=== PATIENT | female | born 1965 | race Caucasian/White ===

== ENCOUNTER 2017-11-30 16:39 | Emergency (ER) | payer BC ==
[~2017-11-30] VITALS: Ht 167.6 cm; Wt 71.7 kg
== END 2017-11-30 16:55 | disposition home or self-care (01) ==
LOC: ED 16:39
DX: R07.81 Pleurodynia (principal)

== ENCOUNTER 2019-03-23 06:50 | Day surgery (SDC) | payer BC, OTHER ==
--- NOTE | 2019-03-16 08:04 | NUR ---
LE 06- PT REPORTS DRINKING WATER "THROUGH THE NIGHT AND THIS MORNING". PT ALSO SHARES THAT SHE MAY NOT HAVE A RIDE HOME AT THIS TIME. INFORMATION GIVEN TO OR CUSTOMER SERVICE AND SALES CONSULTANT AND MONTSE WOMACK. 07- MONTSE WOMACK IN PT ROOM AND ORDERS RECEIVED TO CANCEL PT DUE TO LACK OF NPO AND PREVIOUS HX OF ASPIRATION. NOTIFIED. 729- DR. MICHAEL IN ROOM AND CANCELS PT UNTIL NEXT WEDNESDAY. INSTRUCTIONS GOVEN REGARDING NPO STATUS STARTING AT 1700 THE NIGHT BEFORE. PT AGREEABLE. PT AMBULATES FROM DEPARTMENT.
--- NOTE | 2019-03-16 14:17 | NUR ---
RIGO RUEDA REQUESTED I NOT ENTER PTS' RM AT THIS TIME. SHE HAS JUST BEEN INFORMED THAT HER SURGERY IS CANCELLED BECAUSE OF NON NPO. RN DID NOT WANT TO UPSET PT ANY MORE. WILL FOLLOW NEEDED
[~2019-03-23] VITALS: Ht 167.6 cm; Wt 78.0 kg
--- NOTE | ~2019-03-23 | OR ---
[facility] [address] [place], [place] [address] Draft DATE OF OPERATION: 03/23/2019 SURGEON: Becca Keller DO PREOPERATIVE DIAGNOSES: 1. Cervical intraepithelial neoplasia III. 2. Tobacco use. 3. History of gastroesophageal reflux disease with possible os placement prior attempted conization. POSTOPERATIVE DIAGNOSES: 1. Cervical intraepithelial neoplasia III. 2. Tobacco use. 3. History of gastroesophageal reflux disease with possible os placement prior attempted conization. PROCEDURES PERFORMED: BOX SPINNER: Erich Ko MD ANESTHESIA: Spinal. ESTIMATED BLOOD LOSS: 10 mL. SPECIMENS: 1. Conization of the cervix marked at 12 o'clock with a suture. 2. Endocervical curretage packing, squamous cell in the cervical cone bed. FINDINGS: Normal external genitalia. No cervical masses. Cervix unchanged from prior colposcopy. No lesions in the vagina noted with repeat exam including Lugol's. Hemostasis at the end of the procedure. COMPLICATIONS: None. INDICATIONS: Ms. Emery is a pleasant 53-year-old white female, who presented for evaluation of an PATIENT NAME: ELIOT EMERY OPERATIVE REPORT DATE OF : 63 REPORT #: [id number] PHYSICIAN: BECCA KELLER DO PCP: TAURUS ESCALANTE MD REPORT IS CONFIDENTIAL AND NOT TO BE RELEASED WITHOUT AUTHORIZATION [address] [place] [id number] Draft abnormal Pap. She had not had a Pap smear for many many years, and upon establishing with primary care, her Pap smear was suggestive of cervical carcinoma. She underwent cervical conization with biopsies that demonstrated severe dysplasia SHAKIRA III. Given her age and clinical scenario, I recommended excisional procedure with cold knife cone. Risks, benefits, and alternatives were discussed in detail at the time of procedure. A month ago she was scheduled to undergo conization, but just prior to starting the procedure, she had an aspiration event. She had severe uncontrolled GERD that was diagnosed at that time. This has been well treated with omeprazole, with the help of her primary care provider, Dr. Escalante. Prior to surgery she had been n.p.o. for an extended period of time, and precautions were taken to avoid repeat possible aspiration. TECHNIQUE: The patient was taken to the operating room where a time-out was performed to confirm correct patient, correct procedure. Spinal anesthesia was also established and the patient was prepped and draped in the dorsal lithotomy position with feet in Yellofin stirrups. ICPs were on and running, and no preoperative antibiotics were indicated. Once the spinal anesthetic was completed, the patient was given a dose of heparin. Once the spinal anesthetic was confirmed to be adequate, a weighted speculum was placed in the vagina and the anterior lip of the cervix was grasped with an Allis clamp. The cervix was cleansed and no masses were noted. Acetic acid was applied to the cervix with aceto-white changes noted, particularly from 4-5 o'clock. No additional lesions were noted. Lugol's was then applied to the cervix and the upper vagina. No additional lesions were noted. Stay sutures were then placed at 3 and 9 o' clock. Plain sutures of 0 chromic were used, and pads. Using stay sutures and Allis clamps, cervical retraction was performed, and cold knife cone was performed with an 11 blade, with careful attention to maintain good margins around gross abnormalities were noted with Lugol's solution. Circumferential cone was made, and apex was noted in the endocervical canal at the upper part of the cervix. The apex was cut with Kimberly scissors and the biopsy was marked at 12 o'clock with a silk suture, endocervical block was then performed using 0.25% Marcaine with epinephrine. Scant bleeding was noted conization, and this was made hemostatic with electrocautery and Monsel solution. Prior to this, an endocervical curettage was performed. Once good hemostasis was obtained, a small piece of Surgicel was placed into the cervical bed, and stay sutures were midline, with good hemostasis appreciated. The patient was then taken to the PACU in good and stable condition. Sponge, needle, and instrument count was correct x2 at the end of the procedure. Dr. Ko was present and participated in all portions of the procedure. PATIENT NAME: ELIOT EMERY OPERATIVE REPORT DATE OF : 63 REPORT #: [id number] PHYSICIAN: BECCA KELLER DO PCP: TAURUS ESCALANTE MD REPORT IS CONFIDENTIAL AND NOT TO BE RELEASED WITHOUT AUTHORIZATION [facility] [address] [place] [id number] Draft Becca Keller DO JDW/MODL /[id number] Copies: ~ PATIENT NAME: ELIOT EMERY OPERATIVE REPORT DATE OF : 63 REPORT #: [id number] PHYSICIAN: BECCA KELLER DO PCP: TAURUS ESCALANTE MD REPORT IS CONFIDENTIAL AND NOT TO BE RELEASED WITHOUT AUTHORIZATION
[~2019-03-23 06:50] MED LIST: LIPITOR80 MG GT; OMEPRAZOLE20 MG PO; PROZAC10 MG PO
[2019-03-23] MEDS ORDERED: IBUPROFEN800 MG PO (12:03)
[2019-03-23] MEDS ORDERED: NORCO 5-325 TA1 EACH PO (12:04)
--- NOTE | 2019-03-23 12:13 | NUR ---
PT RESTING IN BED WITH SCD'S IN PLACE. PT DENIES ANY PAIN OR NAUSEA, TOLERATES ORAL WELL. SPINAL NOT COMPLETELY RESOLVED, PT STATES BILAT TOES STILL NUMB. CALL LIGHT WITHIN REACH.
--- NOTE | 2019-03-23 13:25 | NUR ---
1245: PT STATES TOES NO LONGER NUMB, WOULD LIKE TO TRY AMBULATING TO BATHROOM. PT HAS STEADY GAIT WITH RN ASSIST TO BATHROOM. PT UNABLE TO VOID QS, ONLY DRIBBLES. PT BACK TO ROOM AND BLADDER SCANNED OF 662 MLS IN BLADDER. ICED WATER REFILLED. 1310: DR. MICHAEL NOTIFIED OF PT URINARY STATUS. VERBALLY ORDERS PT TO STAY ONE MORE HOUR TO SEE IF SHE CAN VOID ON OWN. WILL CONTINUE TO MONITOR. PT ENCOURAGED TO USE CALL LIGHT FOR ANY NEEDS. PT FRINED REMAINS AT BEDSIDE.
--- NOTE | 2019-03-23 14:38 | NUR ---
PT IS ALERT, ORIENTED AND SUPPORTED BY A GOOD FRIEND. PT SEEMED INFORMED- LEAST MUCH SHE FELT SHE NEEDED TO KNOW. SHE THANKED ME FOR VISIT AND REQUESTED PRAYER. WILL FOLLOW NEEDED
--- NOTE | 2019-03-23 15:02 | NUR ---
1415: PT UP TO BATHROOM WITH RN ASSIST, STEADY GAIT. PT ABLE TO VOID 400 MLS YELLOW URINE WITH NO PROBLEMS. PT BACK TO ROOM TO GET DRESSED WITH FRIEND IN ROOM. 1430: IV REMOVED WNL. DC INSTRUCTIONS GIVEN IN PRESENCE OF PT AND FRIEND, ALL QUESTIONS ADDRESSED. PAIN PRESCRIPTION IN DC FOLDER WITH PT. PT DC'S VIA WC TO PERSONAL VEHICLE AT MAIN ENTRANCE OF HOSPITAL.
--- NOTE | 2019-03-27 10:19 | PATH ---
[facility] [address] [place], [place] [address] Signed SPECIMEN(S): A ENDOCERVICAL CURETTINGS SPECIMEN(S): B CERVICAL CONE AT 12 O'CLOCK SPECIMEN SOURCE: A. ENDOCERVICAL CURETTINGS B. CERVICAL CONE AT 12 O'CLOCK CLINICAL HISTORY: SHAKIRA III with severe dysplasia. FINAL PATHOLOGIC DIAGNOSIS: A. Uterus, endocervix, curettage: - No microscopic pathologic diagnosis. B. Uterus, cervix, cone biopsy: - Cervix - 12-3 o'clock: Cervical intraepithelial neoplasia (SHAKIRA) grade 2 and grade 3. - Endocervical and ectocervical margins: Free of dysplasia. - Moderate subacute cervicitis. - Cervix - 3-6 o'clock: SHAKIRA 2 and SHAKIRA 3. - Margins: Free of dysplasia. - Mild chronic cervicitis - Cervix - 6-9 o'clock: SHAKIRA 2 and 3. - Endocervical and ectocervical margins: Free of dysplasia. - Moderate chronic cervicitis. - Cervix - 9-12 o'clock: SHAKIRA 3. - Endocervical and ectocervical margins of excision free of dysplasia. - Mild chronic cervicitis. COMMENT: The patient had previous biopsies of the uterine cervix received at [facility] 01/19/2019 ([id number]) with results of SHAKIRA 2 on the 6 o'clock biopsy and SHAKIRA on the 9 and 12 o'clock biopsies. There are no recent Pap smears on this patient in the [facility] database. GERALDO:cml:C2NR MICROSCOPIC EXAMINATION: Histologic sections of all submitted blocks are examined by light microscopy. PATIENT NAME: ELIOT SMALLS PATHOLOGY DATE OF : 63 REPORT #: [id number] PHYSICIAN: EMELY CHAMPION PCP: TAURUS ESCALANTE MD REPORT IS CONFIDENTIAL AND NOT TO BE RELEASED WITHOUT AUTHORIZATION [facility] [address] [place], [place] [address] Signed These findings, together with the gross examination, support the pathologic diagnosis. Immunostains for p16 and Ki-67 are obtained along with appropriately positive controls, on material from cassettes B3 and B4. Results support the above diagnoses. GROSS DESCRIPTION: Two specimens are received in two containers, labeled "BB." A. The specimen, labeled "BB, endocervical curettings," is received in formalin and consists of several pieces of pink-cheng tissue fragments that aggregate measure 0.1 cm in diameter. The size of the fragments is small that is possible to not survive processing. Specimen is entirely submitted in cassette (A1). B. The specimen, labeled "BB, cervical cone biopsy," is received in formalin and consists of cone shaped cervical tissue that measures 1.5 x 1.2 x 2.5 cm. The specimen shows black tag that is designated as 12 o'clock. The ectocervix is pink-cheng and slightly roughed. Specimen is inked: Cervical canal opening-blue, surgical resection margins, black. Specimen is serial sectioned and entirely submitted in five cassettes. Cassette summary: (B1) From 12 to 3 o'clock (B2) 3 to 6 o'clock (B3-B4) 6 to 9 o'clock (B5) 9 to 12 o'clock JS (under the direct supervision of a pathologist) The Gross Description was prepared using a voice recognition system. The report was reviewed for accuracy; however, sound-alike word errors, addition and/or deletions may occur. If there is any question about this report, please contact Client Services. ADDITIONAL NOTES: Immunohistochemical and/or in situ hybridization studies were performed on this case with the appropriate positive controls that react as expected. This test was developed and its performance characteristics determined by [facility]. It has not been cleared or approved by the U.S. Food and Drug Administration. The FDA has determined that such clearance or approval is not necessary. This test is used for clinical purposes. It should not be regarded as investigational or for research. [facility] is certified under the Clinical Laboratory Improvement PATIENT NAME: ELIOT SMALLS PATHOLOGY DATE OF : 63 REPORT #: [id number] PHYSICIAN: EMELY CHAMPION PCP: TAURUS ESCALANTE MD REPORT IS CONFIDENTIAL AND NOT TO BE RELEASED WITHOUT AUTHORIZATION [facility] [address] [place], [place] [address] Signed Amendments of 1988 (CLIA) as qualified to perform high complexity clinical laboratory testing. PERFORMING LABORATORY: The technical component was performed by [facility], [address] [place] [address] (Systems Administration Analyst: Kirsten Zuleta MD; CLIA# [id number]). Professional interpretation was performed by [facility], [address] [address] (Systems Administration Analyst: Oscar Park MD; CLIA# [id number]). Diagnostician: Oscar Park MD Pathologist Electronically Signed 03/27/2019 Copies: ~ PATIENT NAME: ELIOT SMALLS PATHOLOGY DATE OF : 63 REPORT #: [id number] PHYSICIAN: EMELY PATHOLOGY PCP: TAURUS ESCALANTE MD REPORT IS CONFIDENTIAL AND NOT TO BE RELEASED WITHOUT AUTHORIZATION
== END 2019-03-23 14:40 | disposition home or self-care (01) ==
LOC: OPS 06:50 → DS 06:50 → OPS 14:40
PROVIDERS: Obstetrics & Gynecology
PROC: 0UBC7ZZ Excision of Cervix, Via Natural or Artificial Opening (ICD-10-PCS; principal; 2019-03-23 10:30)
DX: D06.9 Carcinoma in situ of cervix, unspecified (principal); I10 Essential (primary) hypertension; E78.00 Pure hypercholesterolemia, unspecified; F32.9 Major depressive disorder, single episode, unspecified; F17.210 Nicotine dependence, cigarettes, uncomplicated; N72 Inflammatory disease of cervix uteri; Z87.19 Personal history of other diseases of the digestive system; Z86.73 Personal history of transient ischemic attack (TIA), and cerebral infarction without residual deficits; Z79.899 Other long term (current) drug therapy
CPT/HCPCS: 00940; J1644; J7121

== ENCOUNTER 2019-09-20 12:17 | Emergency (ER) | payer OTHER ==
[~2019-09-20] VITALS: Ht 170.2 cm; Wt 81.7 kg
[~2019-09-20 12:17] MED LIST changes: +IBUPROFEN800 MG PO; +NORCO 5-325 TA1 EACH PO
[2019-09-20] MEDS ORDERED: FLUOXETINE HCL20 MG PO (12:36)
== END 2019-09-20 13:01 | disposition home or self-care (01) ==
LOC: ED 12:17
DX: S00.11XA Contusion of right eyelid and periocular area, initial encounter (principal); E78.00 Pure hypercholesterolemia, unspecified; F32.9 Major depressive disorder, single episode, unspecified; K21.9 Gastro-esophageal reflux disease without esophagitis; F17.200 Nicotine dependence, unspecified, uncomplicated; Z79.899 Other long term (current) drug therapy; V29.9XXA Motorcycle rider (driver) (passenger) injured in unspecified traffic accident, initial encounter
CPT/HCPCS: 99283

== ENCOUNTER 2021-01-03 06:20 | Day surgery (SDC) | payer OTHER ==
[~2021-01-03] VITALS: Ht 170.2 cm; Wt 95.9 kg
[~2021-01-03 06:20] MED LIST changes: +FLUOXETINE HCL20 MG PO; +TYLOPHEN500 MG PO
--- NOTE | 2021-01-03 08:13 | NUR ---
01/03/21 0813 Aline Mcdermott 0807- PT ARRIVES TO PACU NONAROUSABLE TO STIMILI. RESP EVEN AND UNLABORED. OXYGEN SAT HIGH 90'S TO 100% ON 6L VIA MASK.
--- NOTE | 2021-01-04 08:51 | OR ---
[facility] [address] [place], [place] [address] Signed DATE OF OPERATION: 01/03/2021 SURGEON: Shama Morton MD PREOPERATIVE DIAGNOSIS: Screening. POSTOPERATIVE DIAGNOSES: 1. 3 mm polyps x2 at 7 cm. 2. 3 mm polyps x2 at 15 cm (rectum). 3. Proximal right colon diverticula x2. 4. Minimal internal hemorrhoids. PROCEDURE: Colonoscopy with hot biopsy. ESTIMATED BLOOD LOSS: None. INDICATIONS: Bety is a 55-year-old female, asked to see me for her initial screening colonoscopy. She has no lower GI complaints. There is no family history of colon cancer or polyps. She has significant medical issues and looks much older than her stated age. She had acid reflux during a recent procedure and they almost lost her. She has been advised always to have an anesthesia provider present. She certainly has a very full round face and heavy neck as well. In the office, I gave her a booklet on colonoscopy. She understands the nature of the test. There is risk including, but not limited to gas bloating, crampy abdominal pain, bleeding, perforation requiring surgery, and missed diagnosis. She also understands the need for a monitored anesthesia care. She had expressed understanding and wished to proceed. PROCEDURE NOTE: Bety was taken into our endoscopy suite and placed in the left lateral decubitus position. She was given IV propofol per our nurse small business director. A digital rectal exam was performed and this was unremarkable. The adult colonoscope was introduced and advanced under direct visualization of camera. It took extra propofol and abdominal compression in order to get through her sigmoid colon and then quite rapidly up into the cecum itself. Her prep was quite excellent. We could easily see the appendiceal orifice and the ileocecal valve. The scope was slowly withdrawn. We took pictures throughout for photodocumentation. We saw a couple of diverticula near the ileocecal Electronically Signed By: SHAMA MORTON MD 01/04/21 0851 PATIENT NAME: BETY SMALLS OPERATIVE REPORT DATE OF : 63 REPORT #: [id number] PHYSICIAN: SHAMA MORTON MD PCP: TAURUS ESCALANTE MD REPORT IS CONFIDENTIAL AND NOT TO BE RELEASED WITHOUT AUTHORIZATION [facility] [address] [place], [place] [address] Signed valve and the proximal right colon. There was no diverticuli in the sigmoid colon. Once down in the rectum, she had several tiny polyps, which were removed with a hot biopsy forceps. Upon retroflexion of scope, she has minimal internal hemorrhoid tissue. After this, the gas was suctioned out and the colonoscope removed. Bety tolerated the procedure quite well. RECOMMENDATIONS: I will see Bety back in my office in 7 to 14 days to review her results. MD ALEXANDRO Olivera/PASTORAL /[id number] cc: MD Shama Abreu MD Copies: TAURUS ESCALANTE DMD, ANDREW L MD ~ Electronically Signed By: SHAMA MORTON MD 01/04/21 0851 PATIENT NAME: BETY SMALLS JEFFREY OPERATIVE REPORT DATE OF : 63 REPORT #: [id number] PHYSICIAN: SHAMA MORTON MD PCP: TAURUS ESCALANTE MD REPORT IS CONFIDENTIAL AND NOT TO BE RELEASED WITHOUT AUTHORIZATION
--- NOTE | 2021-01-06 14:49 | PATH ---
[facility] [address] [place], [place] [address] Signed SPECIMEN(S): A RECTAL POLYP AT 7 CM SPECIMEN(S): B RECTAL POLYP AT 15 CM SPECIMEN SOURCE: A. RECTAL POLYP AT 7 CM B. RECTAL POLYP AT 15 CM CLINICAL HISTORY: Screening. Postop: Polyps, diverticulosis, internal hemorrhoids. MICROSCOPIC DESCRIPTION: Histologic sections of all submitted blocks are examined by light microscopy. These findings, together with the gross examination, support the pathologic diagnosis. FINAL PATHOLOGIC DIAGNOSIS: A. Rectum, polyp at 7 cm, polypectomy: - Tubular adenoma (one fragment); negative for high-grade dysplasia. - Hyperplastic polyp (one fragment). - Negative for malignancy. B. Rectum, polyp at 15 cm, polypectomy: - Fragments of cauterized rectal mucosa with no definitive histopathologic abnormality, see Comment. - Negative for dysplasia or malignancy. COMMENT: Regarding specimen B: The tissue could represent a minute hyperplastic polyp, but cautery artifact precludes definitive histologic examination. NAL:cml:C2NR GROSS DESCRIPTION: Two specimens are received in two containers, labeled "BB." A. The specimen, labeled "BB, rectal polyp at 7 cm," is received in formalin and consists of two cehng soft tissue fragment(s) that measure 0.1-0.2 cm in greatest dimension. The specimen is entirely submitted in cassette (A1). B. The specimen, labeled "BB, rectal polyp at 15 cm," is received in formalin and consists of 0.1 cheng soft tissue fragment(s) that measure [up to]cm in greatest dimension. The specimen is entirely submitted in cassette (B1). JS (under the direct supervision of a pathologist) The Gross Description was prepared using a voice recognition system. The report PATIENT NAME: ELIOT SMALLS PATHOLOGY DATE OF : 63 REPORT #: [id number] PHYSICIAN: EMELY PATHOLOGY PCP: TAURUS ESCALANTE MD REPORT IS CONFIDENTIAL AND NOT TO BE RELEASED WITHOUT AUTHORIZATION [facility] [address] [place], [place] [address] Signed was reviewed for accuracy; however, sound-alike word errors, addition and/or deletions may occur. If there is any question about this report, please contact Client Services. PERFORMING LABORATORY: The technical component was performed by [facility] [address] (Switchboard Operator: Kirsten Zuleta MD; CLIA# [id number]). Professional interpretation was performed by [facility], [address] [address] (CLIA# [id number]). Diagnostician: Aleshia Adorno MD Pathologist Electronically Signed 01/06/2021 Copies: ~ PATIENT NAME: ELIOT SMALLS PATHOLOGY DATE OF : 63 REPORT #: [id number] PHYSICIAN: EMELY PATHOLOGY PCP: TAURUS ESCALANTE MD REPORT IS CONFIDENTIAL AND NOT TO BE RELEASED WITHOUT AUTHORIZATION
== END 2021-01-03 08:50 | disposition home or self-care (01) ==
LOC: DS 06:20 → OPS 06:20 → DS 06:45 → OPS 06:45
PROVIDERS: ATTEND Colon & Rectal Surgery
PROC: 0DBP8ZX Excision of Rectum, Via Natural or Artificial Opening Endoscopic, Diagnostic (ICD-10-PCS; principal; 2021-01-03 06:45)
DX: Z12.11 Encounter for screening for malignant neoplasm of colon (principal); D12.8 Benign neoplasm of rectum; K57.30 Diverticulosis of large intestine without perforation or abscess without bleeding; K64.8 Other hemorrhoids; K21.9 Gastro-esophageal reflux disease without esophagitis; I10 Essential (primary) hypertension; E78.00 Pure hypercholesterolemia, unspecified; F17.210 Nicotine dependence, cigarettes, uncomplicated; Z86.73 Personal history of transient ischemic attack (TIA), and cerebral infarction without residual deficits; Z85.41 Personal history of malignant neoplasm of cervix uteri; Z88.6 Allergy status to analgesic agent; M19.042 Primary osteoarthritis, left hand; M19.041 Primary osteoarthritis, right hand; M17.11 Unilateral primary osteoarthritis, right knee
CPT/HCPCS: 88305; J2001; J2704; J7121